=== PATIENT | male | born 1940 | race Caucasian/White ===

== ENCOUNTER → 2016-04-21 | Outpatient (REF) | payer MEDICARE ==
[~2016-04-21] MED LIST: ASP81CT PO; CHLO25TA2 PO; CPR500T PO; FNST5T PO; GEMF600T3 PO; GLIM4TAB PO; METF1000 PO; METO-274 PO; METO1TAB12 PO; NATE60TA8 PO; NF-LISIN40 PO; SMV20T PO
[2016-04-21 14:34] LABS: ANION GAP 18.1 MEQ/L (3-15)
== END ==
LOC: LAB 13:44
PROVIDERS: ATTEND Nurse Practitioner Family
DX: I10 Essential (primary) hypertension (principal)
CPT/HCPCS: 80048

== ENCOUNTER → 2016-05-12 | Outpatient (CLI) | payer MEDICARE | LOC: RT 11:06 | PROVIDERS: ATTEND Internal Medicine | DX: I42.9 Cardiomyopathy, unspecified (principal) | CPT/HCPCS: 93005 ==

== ENCOUNTER → 2016-05-18 | Outpatient (CLI) | payer MEDICARE ==
[2016-05-18 08:32] LABS: BASOPHILS % (AUTO) 0 % (0-2); EOSINOPHILS # (AUTO) 0.2 10^3uL; EOSINOPHILS % (AUTO) 5 % (0-4); LYMPHOCYTES # (AUTO) 1.1 X10^3; MEAN CORPUSCULAR HEMOGLOBIN 30.3 PG (26.0-34.0); MEAN CORPUSCULAR HGB CONC 34.7 g/dL (31.0-37.0); MEAN CORPUSCULAR VOLUME 87 FL (80-100); MEAN PLATELET VOLUME 9.9 FL (6.0-9.5); MONOCYTES # (AUTO) 0.5 X10^3; MONOCYTES % (AUTO) 10 % (3-11); NEUTROPHILS # (AUTO) 2.9 X10^3; NEUTROPHILS % (AUTO) 62 % (51-67); PLATELET COUNT 145 10^3uL (150-450); WHITE BLOOD COUNT 4.69 10^3uL (4.0-11.0)
== END ==
LOC: LAB 08:13
PROVIDERS: ATTEND Nurse Practitioner Family
DX: D64.89 Other specified anemias (principal); D64.9 Anemia, unspecified; E11.9 Type 2 diabetes mellitus without complications
CPT/HCPCS: 36415; 82728; 83036; 85025

== ENCOUNTER → 2016-08-28 | Outpatient (CLI) | payer MEDICARE ==
[2016-08-28 09:01] LABS: BASOPHILS % (AUTO) 0 % (0-2); EOSINOPHILS # (AUTO) 0.2 10^3uL; EOSINOPHILS % (AUTO) 4 % (0-4); LYMPHOCYTES # (AUTO) 1.2 X10^3; MEAN CORPUSCULAR HEMOGLOBIN 30.1 PG (26.0-34.0); MEAN CORPUSCULAR HGB CONC 34.5 g/dL (31.0-37.0); MEAN CORPUSCULAR VOLUME 87 FL (80-100); MEAN PLATELET VOLUME 10.1 FL (6.0-9.5); MONOCYTES # (AUTO) 0.5 X10^3; MONOCYTES % (AUTO) 10 % (3-11); NEUTROPHILS % (AUTO) 61 % (51-67); PLATELET COUNT 162 10^3uL (150-450); WHITE BLOOD COUNT 4.93 10^3uL (4.0-11.0)
== END ==
LOC: LAB 08:48
PROVIDERS: ATTEND Nurse Practitioner Family
DX: D64.89 Other specified anemias (principal); E11.9 Type 2 diabetes mellitus without complications
CPT/HCPCS: 36415; 82728; 83036; 85025